=== PATIENT | female | born 2000 | race Caucasian/White ===

== ENCOUNTER → 2019-09-12 16:52 | Outpatient (BNVA) | payer MEDICAID, SELFPAY | PROVIDERS: Visit Provider Nurse Practitioner Family | DX: R10.2 Pelvic and perineal pain (principal) | CPT/HCPCS: 81003; 81025 ==

== ENCOUNTER 2019-10-15 09:13 | Outpatient (CLI) | payer MEDICAID, SELFPAY ==
--- NOTE | 2019-10-15 09:19 | US_ITS ---
WS: [id number] TRANSABDOMINAL PELVIC AND TRANSVAGINAL PELVIC ULTRASOUND HISTORY: PELVIC PAIN, FEMALE COMPARISON: None available. Uterus: 7.7 cm x 6.6 cm x 4.0 cm. Normal size anteverted uterus. No fibroid or mass. Endometrium: 1.3 cm. Endometrium is top normal size and mildly heterogeneous. No discrete mass. Right ovary: 3.2 cm x 2.1 cm x 2.3 cm. Multiple small follicles in the RIGHT ovary. There is a small amount of free fluid adjacent to the RIGHT ovary. Left ovary: 3.9 cm x 2.5 cm x 2.5 cm. Irregular shaped LEFT ovarian cystic mass with a maximum diamet er of 1.8 cm. Small amount of free fluid adjacent to the LEFT ovary. US/US pelvic with transvaginal IMPRESSION: 1. Collapsing corpus luteum LEFT ovary. 2. Small amount of free fluid in the pelvis around each ovary. 3. Top normal size endometrium. No mass.
== END 2019-10-15 09:14 | disposition home or self-care (01) ==
LOC: RAD 09:17
PROVIDERS: PCP Family Medicine; Visit Provider Family Medicine
DX: N83.202 Unspecified ovarian cyst, left side (principal); R10.2 Pelvic and perineal pain
CPT/HCPCS: 76830; 76856

== ENCOUNTER → 2020-05-02 15:51 | Outpatient (BNVA) | payer SELFPAY | PROVIDERS: PCP Family Medicine; Visit Provider Emergency Medicine | DX: R10.2 Pelvic and perineal pain (principal) | CPT/HCPCS: 81000 ==

== ENCOUNTER → 2020-08-31 14:08 | Outpatient (BNVA) | payer BC, SELFPAY | PROVIDERS: PCP Family Medicine; Visit Provider Nurse Practitioner Family | DX: Z32.00 Encounter for pregnancy test, result unknown (principal) | CPT/HCPCS: 81025 ==

== ENCOUNTER → 2020-10-05 12:15 | Outpatient (BNVA) | payer BC, MEDICAID, SELFPAY | PROVIDERS: PCP Family Medicine; Visit Provider Obstetrics & Gynecology | DX: O99.340 Other mental disorders complicating pregnancy, unspecified trimester (principal); F41.9 Anxiety disorder, unspecified; O99.211 Obesity complicating pregnancy, first trimester; E66.9 Obesity, unspecified; Z3A.00 Weeks of gestation of pregnancy not specified; Z87.59 Personal history of other complications of pregnancy, childbirth and the puerperium | CPT/HCPCS: 80307; 81000; 82950; 83036; 85027; 86592; 86762; 86803; 86850; 86900; 87086; 87340; 87806 ==

== ENCOUNTER 2020-10-13 13:37 | Outpatient (CLI) | payer BC, MEDICAID, SELFPAY ==
[2020-10-13 13:42] VITALS: BP 123/84; PULSE 105; RESP 16; TEMP 36.6; O2SAT 96; BMI 36.0
[2020-10-13 15:15] VITALS: RESP 18; TEMP 36.3
[2020-10-13 16:00] VITALS: BP 132/78; PULSE 80; RESP 18; TEMP 36.3; BMI 36.0
[2020-10-13] MEDS: dextrose 5%-sod chloride 0.9% 1,000 ML 999 ML IV ×2 (16:11→19:04)
[2020-10-13] MEDS: promethazine 25 mg/mL SDV 1 mL IM (16:11)
[2020-10-13] MEDS: famotidine 20 mg/2 mL INJ IVP (17:14)
[2020-10-13 18:00] VITALS: BP 134/76; PULSE 74; RESP 16
[2020-10-13 18:58] LABS: Basophils % 0.2 %; Eosinophils % 0.1 %; Hematocrit 46.7 % (37.0-47.0); Hemoglobin 15.2 g/dL (11.5-15.3); Lymphocytes # 0.3 10^3/uL (0.8-4.8); Lymphocytes % 1.9 %; Mean Corpuscular HGB Conc 32.5 g/dL (30.0-36.0); Mean Corpuscular Hemoglobin 29.8 pg (28.0-34.0); Mean Corpuscular Volume 91.6 fL (81-99); Mean Platelet Volume 10.8 fL (7.4-10.4); Monocytes % 5.3 %; Neutrophils # 16.42 10^3/uL (1.8-7.7); Neutrophils % 92.1 %; Nucleated Red Blood Cells % 0 %; Platelet Count 225 10^3/cmm (130-400); Red Cell Distribution Width 12.2 % (12.1-15.1); White Blood Count 17.8 10^3/uL (4.0-10.0)
[2020-10-13] MEDS: metoclopramide 5 mg/mL SDV 2 mL 10 MG IVP (19:03)
[2020-10-13 19:23] LABS: Alanine Aminotransferase 11 U/L (0-33); Albumin Level 4.1 g/dL (3.5-5.2); Alkaline Phosphatase 54 IU/L (35-105); Blood Urea Nitrogen 16 mg/dL (6-20); Calcium 8.8 mg/dL (8.5-10.5); Carbon Dioxide 17 mmol/L (22-29); Chloride 96 mmol/L (98-107); Globulin 3.5 g/dL (1.3-4.6); Glomerular Filtration Rate 278.2 mL/min (90-130); Glucose 87 mg/dL (65-115); Osmolality Calculated 271 mOsm/kg (285-295); Sodium 130 mmol/L (136-145); Total Bilirubin 0.2 mg/dL (0.15-1.2); Total Protein 7.6 g/dL (6.6-8.7)
[2020-10-13 19:25] LABS: Anion Gap 20.3 (5-19); Potassium 3.3 mmol/L (3.5-5.1)
[2020-10-13 19:26] LABS: Aspartate Amino Transferase 19 U/L (0-32)
[2020-10-13 21:30] VITALS: BP 108/65; PULSE 90; RESP 18; TEMP 36.9; O2SAT 97
[2020-10-14] MEDS: dextrose 5%-sod chloride 0.9% 1,000 ML 200 ML IV ×2 (00:10→05:19)
[2020-10-14] MEDS: metoclopramide 5 mg/mL SDV 2 mL 10 MG IVP ×2 (00:10→06:34)
[2020-10-14 01:29] LABS: Add Urine Microscopic? NO
[2020-10-14 01:31] LABS: Bilirubin Urine Neg (Negative); Blood Urine Neg (Negative); Glucose Urine UA 2+ (Normal); Ketones Urine 1+ (Negative); Leukocyte Esterase Urine Negative (Negative); Nitrate Urine Negative (Negative); Protein Urine Neg (Negative); Urine Appearance Clear (CLEAR); Urine Color Yellow (Yellow); Urobilinogen Urine Norm (Negative); pH Urine 5 (5-7)
[2020-10-14 03:55] VITALS: BP 101/57; PULSE 87; RESP 18; TEMP 37; O2SAT 97
[2020-10-14 08:00] VITALS: BP 95/62; PULSE 87; RESP 16; TEMP 36.9; O2SAT 97
--- NOTE | 2020-10-14 10:52 | PM.SDS ---
Short Stay Summary Providers Date of Admit/Discharge: 10/14/20 Attending Provider: Dalton Dean MD Chief Complaint: 11 WKS PREG, DEHYDRATED, N/V HPI History of Present Illness Patient is a 20-year-old female 3, para 1-0-1-1 with an LMP of 07/23/2020 and an EDC of 04/29/2021 based on LMP and placing her at 11-5/7 weeks gestation at time of admission. Patient states that out about 11:00 yesterday morning she started feeling bad and started vomiting. She went home from work and continued to have problems and as a result contacted the office. She states she was told that nausea medications would be sent to the pharmacy. However, she was feeling bad enough that she decided to go to the ER instead of picking those up and trying them. She stated she had been having only very minimal nausea and occasional vomiting from the standpoint prior to this episode happening. She stated she was unable to keep liquids or solid food down yesterday. Review of Systems Const: Denies: fever(s) or chills ENMT: Denies: throat pain or nasal congestion Card: Denies: chest pain, palpitations or lightheadedness Resp: Denies: dyspnea, productive cough, non-productive cough or wheezing GI: Reports: nausea and vomiting; Denies: abdominal pain, diarrhea or constipation : Denies: dysuria or vaginal bleeding Musc: Denies: back pain Neuro: Denies: headache(s) or dizziness Psych: Denies: anxiety or depression Endo: Denies: cold intolerance or heat intolerance Valeriano/Lymph: Denies: easy bruising or easy bleeding Home Meds/Allergies Home Medications and Allergies Home Medications Medication Instructions Recorded Confirmed Type prenat.vits,jovita,mfh-suff-rzhvf 1 tab PO DAILY 09/12/19 09/22/20 History Allergies Allergy/AdvReac Type Severity Reaction Status Date / Time medroxyprogesterone Allergy ADR-Nausea Verified 10/05/20 11:12 [From Depo-Provera] oxcarbazepine Allergy ALGY-Hives Verified 10/05/20 11:12 [From Trileptal] PFSH Acute PFSH: Medical History Anxiety Asthma, exercise induced History of gestational hypertension No pertinent past medical history neghx:htn,dm,thyroid,dvt/pe,herpes Denies partner hx of herpes. PCP: none Surgical History H/O oral surgery (~2011) Family History Unknown Cancer She is adopted. She is uncertain of fam hx. Social History (Updated 10/14/20 @ 10:59 by Nikita Sloan MD) Smoking and tobacco status: former smoker Quit status (tobacco): has quit using tobacco Former quit date comment: Quit age 14 Alcohol intake: former Former alcohol use details: prior to Substance/Drug Use: never Female Reproductive History: : 3 Vitals/I&O/Wt Last Vital Signs Temp 98.5 F 10/14/20 08:00 Pulse 87 10/14/20 08:00 Resp 16 10/14/20 08:00 BP 95/62 10/14/20 08:00 Pulse Ox 97 10/14/20 08:00 10/13/20 10/14/20 10/14/20 22:59 06:59 14:59 Intake Total 1999.0 / 1999.0 1000 / 3000.0 956.667 / 956.667 Balance 2000.0 / 2000.0 1000 / 3000.0 956.667 / 956.667 Weight last 48 hrs Weight 209 lb 15.845 oz Weight 210 lb Physical Exam Const: COMMON NORMALS: no acute distress, average body habitus, alert and well nourished GENERAL APPEARANCE: well developed ORIENTATION/CONSCIOUSNESS: Yes oriented to person, Yes oriented to place and Yes oriented to time Resp: COMMON NORMALS: normal respiratory effort and clear to auscultation bilaterally AUSCULTATION: clear to auscultation bilaterally Cardio: COMMON NORMALS: regular rate, regular rhythm, No gallops present (Cardio), No murmurs present (Cardio) and No rub (Cardio) RATE: regular rate RHYTHM: regular rhythm GI: COMMON NORMALS: Soft to palpation, No hepatosplenomegaly present and no masses AUSCULTATION: Yes normoactive bowel sounds PALPATION: Yes Soft to palpation, Yes Tenderness to palpation present (GI) (Mild epigastric), Yes No hepatosplenomegaly present and No Hernia present : EXTERNAL FEMALE EXAM: No Hernia present Extremity: COMMON NORMALS: no calf tenderness Neuro: SENSORIUM/ORIENTATION: Yes alert, Yes oriented to person, Yes oriented to place and Yes oriented to time Psych: COMMON NORMALS: normal affect MOOD & AFFECT: Yes euthymic mood Hospital Course Hospital Course Patient was initially treated with fluid bolus and IM antiemetics. However, after the bolus she continued to have episodes of vomiting and as a result she was kept through the night for continued IV hydration. She was also started on scheduled Reglan with Phenergan and on an as-needed basis. Since she had not been having problems with significant nausea vomiting prior to this episode starting, this is unlikely to be purely related and possibly something she ate or illness related. Patient had been noted to have mild hyponatremia and hypokalemia and was treated with IV fluids. This morning, she states feeling much better. She reports not feeling nauseated this morning. She was able to keep clear liquids down this morning. At this point, she is being discharged home. I discussed with her that she may continue to have episodes of nausea and vomiting off and on. Discussed with her that the most important part is staying well-hydrated. Brat diet was discussed with the patient. She is to follow-up in the office at her next scheduled appointment with Dr. Becerra. 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 SSS Data Data Completed and Pendin10/13/2020 WBC 17.8, Hgb 15.2, Hct 46.7, Plt 225, neutrophils 92.1%, lymphocytes 1.9%, monocytes 5.3%, eosinophils 0.1%, basophil 0.2% CMP sodium 130, potassium 3.1, chloride 96, CO2 17, BUN 16, creatinine 0.3, glucose 87, calcium 8.8, total bili 0.2, AST 19, ALT 11, alk phos 54, total protein 7.6, albumin 4.1. 10/14/2020 Urinalysis: Specific gravity 1.020, protein negative, glucose 2+, ketones 1+, blood negative, nitrate negative, leukocyte Estrace negative. Diagnoses at Discharge Discharge Diagnosis (1) Nausea/vomiting in : Status: Acute (2) Acute hyponatremia: Status: Acute (3) Hypokalemia: Status: Acute Discharge Plan Discharge Patient Disposition: Home Condition: Stable Prescriptions: Continued prenat.vits,jovita,vam-wqro-npwdb Tablet 1 tab PO DAILY RF: 0 doxylamine-pyridoxine (vit B6) [Diclegis] 10-10 mg tablet,delayed release (DR/EC) 1 tab PO .at bedtime Qty: 30 RF: 0 Discharge Orders: Discharge Order (Routine); Ordered 10/14/20 Ordered By: Nikita Sloan Referrals: Markus Becerra MD [Physician] - 10/19/20 1:00 pm (Routine OB visit) Discharge Diet: As Directed Discharge Activity: Resume usual activity Patient Instructions: Pre-eclampsia and Eclampsia (DC), OB Discharge Report, OB Food/Drug Interaction Guide, OB Undelivered Discharge Attestations Medical Necessity Statement*: Patient had had nausea and vomiting with electrolyte abnormalities. Discharge today. 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
[2020-10-14 11:31] VITALS: BP 95/62; PULSE 87; RESP 16; TEMP 36.9; O2SAT 97
== END 2020-10-14 12:58 | disposition home or self-care (01) ==
LOC: ER 13:48 → OBGYN 15:08 → ER 10-14 11:47 → OBGYN 10-14 11:47
PROVIDERS: Obstetrics & Gynecology; Emergency Provider Family Medicine; Visit Provider Obstetrics & Gynecology
DX: O21.9 Vomiting of pregnancy, unspecified (principal); Z3A.00 Weeks of gestation of pregnancy not specified; E87.1 Hypo-osmolality and hyponatremia; E87.6 Hypokalemia
CPT/HCPCS: 36415; 80053; 81003; 84702; 85025; 96372; 99211; J2550; J2765; J3490

== ENCOUNTER → 2020-10-19 13:45 | Outpatient (BNVA) | payer BC, MEDICAID, SELFPAY | PROVIDERS: Visit Provider Obstetrics & Gynecology | DX: Z34.90 Encounter for supervision of normal pregnancy, unspecified, unspecified trimester (principal) | CPT/HCPCS: 81000; 87491; 87591 ==

== ENCOUNTER → 2020-11-17 12:42 | Outpatient (BNVA) | payer BC, MEDICAID, SELFPAY | PROVIDERS: Visit Provider Nurse Practitioner Women's Health | DX: O21.9 Vomiting of pregnancy, unspecified (principal); O99.212 Obesity complicating pregnancy, second trimester; E66.9 Obesity, unspecified; O99.340 Other mental disorders complicating pregnancy, unspecified trimester; F41.9 Anxiety disorder, unspecified; Z3A.00 Weeks of gestation of pregnancy not specified | CPT/HCPCS: 81000; 87086 ==

== ENCOUNTER → 2020-11-19 00:01 | Outpatient (BNVA) | payer BC, MEDICAID, SELFPAY | PROVIDERS: Visit Provider Obstetrics & Gynecology | DX: Z87.59 Personal history of other complications of pregnancy, childbirth and the puerperium (principal) | CPT/HCPCS: 80053; 82570; 84156; 84550 ==

== ENCOUNTER → 2020-12-14 14:54 | Outpatient (BNVA) | payer BC, MEDICAID, SELFPAY | PROVIDERS: Visit Provider Obstetrics & Gynecology | DX: Z34.92 Encounter for supervision of normal pregnancy, unspecified, second trimester (principal) | CPT/HCPCS: 76805 ==

== ENCOUNTER → 2020-12-18 13:19 | Outpatient (BNVA) | payer BC, MEDICAID, SELFPAY | PROVIDERS: Visit Provider Obstetrics & Gynecology | DX: O99.340 Other mental disorders complicating pregnancy, unspecified trimester (principal); F41.9 Anxiety disorder, unspecified; O99.212 Obesity complicating pregnancy, second trimester; E66.9 Obesity, unspecified; Z87.59 Personal history of other complications of pregnancy, childbirth and the puerperium; Z3A.00 Weeks of gestation of pregnancy not specified | CPT/HCPCS: 81000 ==

== ENCOUNTER → 2022-09-02 09:15 | Outpatient (BNVA) | payer BC, MEDICAID, SELFPAY | PROVIDERS: Visit Provider Family Medicine Adult Medicine | DX: N92.6 Irregular menstruation, unspecified (principal); R10.2 Pelvic and perineal pain; R10.9 Unspecified abdominal pain; K58.9 Irritable bowel syndrome, unspecified | CPT/HCPCS: 81000; 81025 ==

== ENCOUNTER → 2022-09-08 10:00 | Outpatient (BNVA) | payer BC, MEDICAID, SELFPAY | PROVIDERS: Visit Provider Nurse Practitioner Women's Health | DX: R30.0 Dysuria (principal); R10.2 Pelvic and perineal pain | CPT/HCPCS: 81000; 87491; 87591; 87661; 88175 ==

== ENCOUNTER → 2022-10-10 14:00 | Outpatient (BNVA) | payer BC, MEDICAID, SELFPAY | PROVIDERS: Visit Provider Nurse Practitioner Women's Health | DX: N39.0 Urinary tract infection, site not specified (principal) | CPT/HCPCS: 81000; 87086 ==

== ENCOUNTER → 2022-11-11 08:15 | Outpatient (BNVA) | payer BC, MEDICAID, SELFPAY | PROVIDERS: Visit Provider Family Medicine Adult Medicine | DX: Z34.90 Encounter for supervision of normal pregnancy, unspecified, unspecified trimester (principal); R10.9 Unspecified abdominal pain; R10.2 Pelvic and perineal pain; F41.9 Anxiety disorder, unspecified; N64.4 Mastodynia | CPT/HCPCS: 84702 ==

== ENCOUNTER 2022-11-13 16:07 | Emergency (ER) | payer BC, MEDICAID, SELFPAY ==
[2022-11-13 16:16] VITALS: BP 113/73; PULSE 101; RESP 18; TEMP 36.9; O2SAT 94
[2022-11-13 16:47] VITALS: PULSE 89; O2SAT 98
--- NOTE | 2022-11-13 16:47 | PC.NURSE ---
WHILE IN LOBBY WITH PT, PT IS IN NAD. PT DOES NOT VERBALIZE ANY NEEDS AT THIS TIME.
--- NOTE | 2022-11-13 18:31 | W.ED.NAVMDI ---
HPI - Nausea/Vomiting/Diarrhea General: Chief complaint: Nausea/Vomiting/Diarrhea Stated complaint: Pain in pelvic area, going on a wk and half. Time Seen by Provider: 11/13/22 18:28 History of Present Illness: 22-year-old comes in today with concerns of being due to pelvic congestion and discomfort, nausea and heartburn. Patient reports that symptoms are similar to her prior pregnancies. Patient appears nontoxic. Patient's last menstrual cycle was over 1 month ago. Patient is resting well and denies any other complaints. Associated symtoms: Denies chest pain Review of Systems General: Reports: 10 or more systems reviewed and unremarkable except in HPI and below ENMT: Denies: throat pain Card: Denies: chest pain Resp: Denies: dyspnea GI: Reports: other (Increase in reflux) : Reports: irregular period; Denies: vaginal discharge Musc: Denies: neck pain or back pain PFS ED PFSH: Medical History (Updated 11/13/22 @ 20:11 by BILL Crawford) Abdominal pain Anxiety Asthma, exercise induced Breast tenderness in female History of gestational hypertension IBS (irritable bowel syndrome) Obesity Pelvic pain Surgical History H/O oral surgery (~2011) Family History Unknown Cancer She is adopted. She is uncertain of fam hx. Physical Exam Const: COMMON NORMALS: alert HENMT: COMMON NORMALS: normocephalic HEAD & SCALP: normocephalic Neck/C-Spine: COMMON NORMALS: full ROM Resp: COMMON NORMALS: normal respiratory effort and clear to auscultation bilaterally AUSCULTATION: clear to auscultation bilaterally Cardio: COMMON NORMALS: regular rate and regular rhythm RATE: regular rate RHYTHM: regular rhythm : COMMON NORMALS: Yes no CVA tenderness BLADDER/KIDNEY EXAM: Yes no CVA tenderness Back/Pelvis: COMMON NORMALS: no CVA tenderness Extremity: COMMON NORMALS: normal to inspection Neuro: SENSORIUM/ORIENTATION: Yes alert Skin: COMMON NORMALS: turgor normal GENERAL SKIN EXAM: turgor normal Course ED course: 1944, reviewed blood count and hCG with patient. Patient was concerned still about her pelvic pressure we ordered a ultrasound of the pelvis for further evaluation. Awaiting urine results and CMP. Vital Signs: Vital signs: Vital Signs Temperature 98.4 F 11/13/22 16:16 Pulse Rate 75 11/13/22 19:04 Respiratory Rate 16 11/13/22 19:04 Blood Pressure 122/80 11/13/22 19:04 Pulse Oximetry 98 11/13/22 19:04 Oxygen Delivery Me thod 11/13/22 19:04 MDM - Nausea/Vomiting/Diarrhea Medical Decision Making 22-year-old female comes in today for complaints of pelvic fullness, increased heartburn, and concerns of . On exam lungs are clear to auscultation. Heart rates regular. No CVA tenderness. Abdomen soft and nontender. Differential diagnosis includes but not limited to UTI, malingering, . Laboratory values were unremarkable. Patient had a not to clean his catheter urine but did have some white blood cells but a significant amount of skin cells. Culture will be performed for gonorrhea and chlamydia. Patient was recommended to follow-up with primary care. I offered to do an ultrasound but patient did not want to wait and stated she will follow-up with her PCP. Lab Data 11/13/22 19:05 11/13/22 19:05 Laboratory Results WBC 7.2 10^3/uL (4.0-10.0) 11/13/22 19:05 RBC 4.54 10^6/uL (4.1-5.3) 11/13/22 19:05 Hgb 13.4 g/dL (11.5-15.3) 11/13/22 19:05 Hct 40.5 % (37.0-47.0) 11/13/22 19:05 MCV 89.2 fl (81-99) 11/13/22 19:05 MCH 29.5 pg (28.0-34.0) 11/13/22 19:05 MCHC 33.1 g/dL (30.0-36.0) 11/13/22 19:05 RDW 12.2 % (12.1-15.1) 11/13/22 19:05 Plt Count 253 10^3/cmm (130-400) 11/13/22 19:05 MPV 10.0 fL (7.4-10.4) 11/13/22 19:05 Neut % (Auto) 57.3 % 11/13/22 19:05 Lymph % (Auto) 31.3 % 11/13/22 19:05 Christian % (Auto) 8.6 % 11/13/22 19:05 Eos % (Auto) 2.1 % 11/13/22 19:05 Baso % (Auto) 0.6 % 11/13/22 19:05 Neut # (Auto) 4.13 10^3/uL (1.8-7.7) 11/13/22 19:05 Lymph # (Auto) 2.3 10^3/uL (0.8-4.8) 11/13/22 19:05 Christian # (Auto) 0.6 10^3/uL (0.2-0.9) 11/13/22 19:05 Eos # (Auto) 0.2 10^3/uL (0.0-0.8) 11/13/22 19:05 Baso # (Auto) 0.0 10^3/uL (0.0-0.1) 11/13/22 19:05 Nucleated RBC % (auto) 0 % 11/13/22 19:05 Nucleated RBCs # 0.0 /100WBC 11/13/22 19:05 Sodium 132 mmol/L (136-145) L 11/13/22 19:05 Potassium 3.8 mmol/L (3.5-5.1) 11/13/22 19:05 Chloride 100 mmol/L (98-107) 11/13/22 19:05 Carbon Dioxide 24 mmol/L (22-29) 11/13/22 19:05 Anion Gap 11.8 (5-19) 11/13/22 19:05 BUN 20 mg/dL (6-20) 11/13/22 19:05 Creatinine 0.5 mg/dL (0.5-0.9) 11/13/22 19:05 GFR Calculation 151.6 mL/min (90-130) H 11/13/22 19:05 Glucose 88 mg/dL (65-115) 11/13/22 19:05 Calculated Osmolality 276 mOsm/kg (285-295) L 11/13/22 19:05 Calcium 8.9 mg/dL (8.5-10.5) 11/13/22 19:05 Total Bilirubin 0.2 mg/dL (0.15-1.2) 11/13/22 19:05 AST 11 U/L (0-32) 11/13/22 19:05 ALT 10 U/L (0-33) 11/13/22 19:05 Alkaline Phosphatase 58 U/L (35-105) 11/13/22 19:05 Total Protein 6.9 g/dL (6.6-8.7) 11/13/22 19:05 Albumin 4.4 g/dL (3.5-5.2) 11/13/22 19:05 Globulin 2.5 g/dL (1.3-4.6) 11/13/22 19:05 Lipase 21 U/L (13-60) 11/13/22 19:05 HCG, Qual Negative (Negative) 11/13/22 19:05 Urine Color Yellow (Yellow) 11/13/22 19:15 Urine Appearance Clear (CLEAR) 11/13/22 19:15 Urine pH 7 (5-7) 11/13/22 19:15 Ur Specific Wall[place] 1.015 (1.005-1.030) 11/13/22 19:15 Urine Protein Neg (Negative) 11/13/22 19:15 Urine Glucose (UA) Norm (Normal) 11/13/22 19:15 Urine Ketones Negative (Negative) 11/13/22 19:15 Urine Blood Neg (Negative) 11/13/22 19:15 Urine Nitrate Negative (Negative) 11/13/22 19:15 Urine Bilirubin Neg (Negative) 11/13/22 19:15 Urine Urobilinogen Norm mg/dL (Negative) 11/13/22 19:15 Ur Leukocyte Esterase 1+ (Negative) H 11/13/22 19:15 Urine RBC 0-4 /hpf (0-2) H 11/13/22 19:15 Urine WBC 5-10 /hpf (0-5) H 11/13/22 19:15 Ur Squamous Epith Cells 15-25 /hpf (0-5) H 11/13/22 19:15 Amorphous Sediment Not Reportable 11/13/22 19:15 Urine Bacteria 2+ /hpf (NONE) H 11/13/22 19:15 Urine Mucus Trace /hpf 11/13/22 19:15 Discharge Plan Discharge Patient Disposition: Home Clinical Impression: Pelvic pain Condition: Stable Prescriptions: No Action prenat.vits,jovita,[id number]-qkcof Tablet 1 tab PO DAILY naproxen [Naprosyn] 500 mg tablet 500 mg PO BID Qty: 20 0RF hydrocortisone 1 % cream 1 applic topical TID PRN (Reason: skin irritation) Qty: 28.35 0RF Discharge Orders: Discharge ED (Routine); Ordered 11/13/22 Ordered By: Waqar Green Discharge Diet: Usual diet Discharge Activity: Increase activity as tolerated Activity Restrictions/Additional Instructions: Drink plenty of water and fluids. We are awaiting results for your urine culture and testing for gonorrhea and chlamydia. Further evaluation with ultrasound of the pelvis to rule out ovarian cyst or other abnormality may be necessary. Drink plenty of water. Follow-up with primary care. Return to ED for new concerns. 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
[2022-11-13 19:04] VITALS: BP 122/80; PULSE 75; RESP 16; O2SAT 98
[2022-11-13 19:15] LABS: Basophils % 0.6 %; Eosinophils # 0.2 10^3/uL (0.0-0.8); Eosinophils % 2.1 %; Hematocrit 40.5 % (37.0-47.0); Hemoglobin 13.4 g/dL (11.5-15.3); Lymphocytes # 2.3 10^3/uL (0.8-4.8); Lymphocytes % 31.3 %; Mean Corpuscular HGB Conc 33.1 g/dL (30.0-36.0); Mean Corpuscular Hemoglobin 29.5 pg (28.0-34.0); Mean Corpuscular Volume 89.2 fl (81-99); Monocytes # 0.6 10^3/uL (0.2-0.9); Monocytes % 8.6 %; Neutrophils # 4.13 10^3/uL (1.8-7.7); Neutrophils % 57.3 %; Nucleated Red Blood Cells % 0 %; Platelet Count 253 10^3/cmm (130-400); Red Blood Count 4.54 10^6/uL (4.1-5.3); Red Cell Distribution Width 12.2 % (12.1-15.1); White Blood Count 7.2 10^3/uL (4.0-10.0)
[2022-11-13 19:23] LABS: HCG, Serum Qual Negative (Negative)
[2022-11-13 19:44] LABS: Alanine Aminotransferase 10 U/L (0-33); Albumin Level 4.4 g/dL (3.5-5.2); Alkaline Phosphatase 58 U/L (35-105); Anion Gap 11.8 (5-19); Aspartate Amino Transferase 11 U/L (0-32); Blood Urea Nitrogen 20 mg/dL (6-20); Calcium 8.9 mg/dL (8.5-10.5); Carbon Dioxide 24 mmol/L (22-29); Chloride 100 mmol/L (98-107); Globulin 2.5 g/dL (1.3-4.6); Glomerular Filtration Rate 151.6 mL/min (90-130); Glucose 88 mg/dL (65-115); Lipase 21 U/L (13-60); Osmolality Calculated 276 mOsm/kg (285-295); Potassium 3.8 mmol/L (3.5-5.1); Sodium 132 mmol/L (136-145); Total Bilirubin 0.2 mg/dL (0.15-1.2); Total Protein 6.9 g/dL (6.6-8.7)
[2022-11-13 19:57] LABS: Add Urine Microscopic? YES; Bilirubin Urine Neg (Negative); Blood Urine Neg (Negative); Glucose Urine UA Norm (Normal); Ketones Urine Negative (Negative); Leukocyte Esterase Urine 1+ (Negative); Nitrate Urine Negative (Negative); Protein Urine Neg (Negative); Specific Gravity, Urine 1.015 (1.005-1.030); Urine Appearance Clear (CLEAR); Urine Color Yellow (Yellow); Urobilinogen Urine Norm (Negative); pH Urine 7 (5-7)
[2022-11-13 20:01] LABS: Bacteria Urine 2+ /hpf; Mucus Urine TRACE /hpf; RBC Urine 0-4 /hpf (0-2); Squamous Epithelial Cell Urine 15-25 /hpf (0-5)
--- NOTE | 2022-11-18 14:17 | DCPLANNER ---
Addendum entered by Angelica Gilbert 01/04/23 11:09: Patient had an appointment scheduled to establish care with Dr. Clemons - patient did attend appointment. Original Note: safety and health manager called patient due to no primary care physician - patient stated that she would like help in getting established with a primary care provider, patient stated that she would like a female. safety and health manager called [facility], gave clinic patients information, a follow up appointment was scheduled for Tuesday, January 03, 2023 at 9:[address] Clemons. safety and health manager called patient and gave patient the appointment information.
== END 2022-11-13 20:19 | disposition home or self-care (01) ==
PROVIDERS: Emergency Provider Nurse Practitioner Family
DX: R10.2 Pelvic and perineal pain (principal)
CPT/HCPCS: 36415; 80053; 81001; 83690; 84703; 85025; 99283

== ENCOUNTER → 2023-01-03 10:16 | Outpatient (BNVA) | payer BC, MEDICAID, SELFPAY | PROVIDERS: PCP Family Medicine; Visit Provider Family Medicine | DX: K52.9 Noninfective gastroenteritis and colitis, unspecified (principal) | CPT/HCPCS: 80053; 82784; 83516; 85025; 86003; 86008; 86618; 86666; 86757 ==

== ENCOUNTER → 2023-02-10 07:45 | Outpatient (BNVA) | payer BC, MEDICAID, SELFPAY | PROVIDERS: PCP Family Medicine; Visit Provider Nurse Practitioner Family | DX: Z72.51 High risk heterosexual behavior (principal) | CPT/HCPCS: 87491; 87591; 87661 ==